=== PATIENT | female | born 1965 | race Caucasian/White ===

== ENCOUNTER → 2020-09-05 10:00 | Outpatient (CLI) | payer OTHER, SELFPAY ==
--- NOTE | ~2020-09-05 | MR_ITS ---
EXAMINATION: MR lumbar spine wo [facility] EXAM DATE: 09/05/2020 12:04 INDICATION: Radiculopathy, chronic lumbar back pain. Bilateral leg weakness. TECHNIQUE: Multi-sequential, multiplanar MR images of the lumbar spine were obtained without contrast . Sagittal T1, T2, T2 fat saturation images. Axial T2 weighted images. There is no prior study for comparison. FINDINGS: The conus medullaris terminates at the L1/2 level and has normal signal intensity and morph ology. There is mild disc disease at all lumbar levels. There is 3 mm retrolisthesis L5 on S1. The v ertebral bodies are otherwise aligned. There are scattered focal signal abnormalities consistent with hemangiomata, otherwise without focal suspicious marrow signal abnormalities. Paraspinal soft tissue is unremarkable. Level by level evaluation: T11-12: Disc does not extend beyond the endplate margin. Facet arthropathy: Mild. Neural foraminal stenosis: No stenosis. Central canal stenosis: No stenosis. T12-L1: Disc does not extend beyond the endplate margin. Facet arthropathy: Mild. Neural foraminal stenosis: No stenosis. Central canal stenosis: No stenosis. L1-L2: Disc does not extend beyond the endplate margin. Facet arthropathy: Mild. Neural foraminal stenosis: No stenosis. Central canal stenosis: No stenosis. L2-L3: There is a mild diffuse disc bulge. Facet arthropathy: Mild to moderate. Neural foraminal stenosis: Mild left. Central canal stenosis: No stenosis. L3-L4: There is a mild to moderate diffuse disc bulge. Facet arthropathy: Mild to moderate. Neural foraminal stenosis: Mild. Central canal stenosis: No stenosis. L4-L5: There is a mild to moderate diffuse disc bulge. Annular fissure. Facet arthropathy: Mild to moderate. Neural foraminal stenosis: Mild to moderate bilateral, left greater than right. Central canal stenosis: Mild to moderate. L5-S1: There is a mild diffuse disc bulge. Facet arthropathy: Mild to moderate right, mild left. Neural foraminal stenosis: Mild to moderate bilateral. Central canal stenosis: No stenosis. IMPRESSION: Mild to moderate lumbar spondylosis. Reviewed, dictated and finalized at location B. INAL CARMAN
== END ==
PROVIDERS: Visit Provider Physician Assistant
DX: M48.062 Spinal stenosis, lumbar region with neurogenic claudication (principal); M47.26 Other spondylosis with radiculopathy, lumbar region
CPT/HCPCS: 72148

== ENCOUNTER 2021-05-17 13:24 | Outpatient (CLI) | payer OTHER, SELFPAY ==
--- NOTE | ~2021-05-17 | US_ITS ---
EXAMINATION: US carotid duplex BI DATE: 05/17/2021 13:57 INDICATION: Carotid stenosis TECHNIQUE: Grayscale, color Doppler, and pulsed Doppler images of the cervical carotid arteries were obtained. The degree of vessel stenosis is placed in one of the following categories: normal, <50%, 5 0-69%, >=70% but less than near-occlusion, near-occlusion, or total occlusion. Note that percent sten osis relative to normal distal artery lumen diameter is indirectly measured from velocity measurement s as described by Domingo, et al. Radiology 2003; [id number]. COMPARISON: 10/22/2018 FINDINGS: RIGHT: The right common carotid artery (CCA) peak systolic velocity (PSV) is 78 cm/s. The right internal car otid artery (ICA) PSV is 74 cm/s. The right ICA end-diastolic velocity (EDV) is 23 cm/s. The right IC A/CCA PSV ratio is 0.9. Grayscale and color Doppler images yield an estimate of <50% diameter reducti on from plaque in the ICA. The external carotid artery (ECA) PSV is 88 cm/s. There is antegrade flow in the right vertebral artery. LEFT: The left CCA PSV is 76 cm/s. The left ICA PSV is 102 cm/s. The left ICA EDV is 34 cm/s. The left ICA/ CCA PSV ratio is 1.3. The location of velocity measurements in the left ICA do not appear to be locat ed at the site of maximal velocity based upon the color imaging and are likely underestimated. Visual ly the degree of stenosis on grayscale imaging appears 50-69% as on the prior study at which time the peak systolic velocities are also consistent with a 50-69% diameter reduction from plaque in the ICA . The ECA PSV is 79 cm/s. There is antegrade flow in the left vertebral artery. IMPRESSION: 1. <50% stenosis in the right internal carotid artery. 2. Unchanged 50-69% stenosis in the left internal carotid artery with peak systolic velocities in the left ICA likely underestimated in the current study due to cursor positioning. Reviewed, dictated and finalized at location A. IMPRESSION: 1. <50% stenosis in the right internal carotid artery. 2. Unchanged 50-69% stenosis in the left internal carotid artery with peak syst olic velocities in the left ICA likely underestimated in the current study due to cursor positioning.
== END 2021-05-17 13:25 | disposition home or self-care (01) ==
LOC: ANHIMG 13:27
PROVIDERS: PCP Internal Medicine; Visit Provider Nurse Practitioner Adult Health
DX: I65.23 Occlusion and stenosis of bilateral carotid arteries (principal)
CPT/HCPCS: 93880

== ENCOUNTER → 2022-10-24 15:23 | Outpatient (CLI) | payer OTHER, SELFPAY ==
--- NOTE | ~2022-10-24 | XR_ITS ---
XR elbow RT 2V DATE: 10/24/2022 15:36 INDICATION: Right elbow pain. Lateral epicondylitis. TECHNIQUE: AP and lateral views COMPARISON: None FINDINGS: Ununited ossification centimeters at the lateral and medial distal humeral epicondyles. There is narrowing at the elbow joint and degenerative spurring, consistent with osteoarthritis. No recent fracture or dislocation or joint effusion. No periosteal reaction or bone destruction. IMPRESSION: Osteoarthritis Reviewed, dictated and finalized at location B. IMPRESSION: Osteoarthritis
== END ==
PROVIDERS: PCP Internal Medicine; Visit Provider Physician Assistant
DX: M19.021 Primary osteoarthritis, right elbow (principal)
CPT/HCPCS: 73070

== ENCOUNTER → 2023-08-14 12:11 | Outpatient (CLI) | payer OTHER, SELFPAY ==
--- NOTE | ~2023-08-14 | MM_ITS ---
EXAMINATION: MM screening [facility] BI w [facility]y HISTORY: Screening mammogram TECHNIQUE: Craniocaudal and mediolateral oblique 3-D tomosynthesis images were obtained and synthetic 2-D images were generated. CAD analysis was submitted and interpreted. COMPARISON: 03/11/2019, 06/12/2017 BREAST PARENCHYMAL COMPOSITION: There are scattered areas of fibroglandular density. FINDINGS: No suspicious mass, calcification, or architectural distortion are identified in either meño ast to suggest malignancy. There has been no suspicious interval change. IMPRESSION: 1. No mammographic evidence of malignancy. 2. Recommend routine screening mammography in one year. BI-RADS Category 1: Negative Reviewed, dictated and finalized at location A. TING DEPARTMENT SUPERVISOR
== END ==
PROVIDERS: PCP Internal Medicine; Visit Provider Internal Medicine
DX: Z12.31 Encounter for screening mammogram for malignant neoplasm of breast (principal)
CPT/HCPCS: 77063; 77067

== ENCOUNTER → 2023-09-11 15:31 | Outpatient (CLI) | payer OTHER, SELFPAY ==
--- NOTE | ~2023-09-11 | XR_ITS ---
[id number]_CR DATE: 09/11/2023 15:48 INDICATION: Right-sided chest pain TECHNIQUE: PA chest. 3 views of the right ribs. COMPARISON: None FINDINGS: Normal heart size. No hilar or mediastinal enlargement. No pulmonary infiltrate or consolid ation, pleural effusion or pulmonary vascular congestion or pneumothorax. No hilar or mediastinal enl argement. There is minimal thoracic aortic unfolding. No right rib fracture or bone destruction is detected. Degenerative spurring of the thoracic and lumbar spine. IMPRESSION: No active cardiopulmonary disease No right rib fracture or bone destruction Reviewed, dictated and finalized at Location A. Reviewed, dictated and finalized at location B. H EXAMINER
== END ==
PROVIDERS: PCP Internal Medicine; Visit Provider Internal Medicine
DX: R07.81 Pleurodynia (principal)
CPT/HCPCS: 71101

== ENCOUNTER 2023-10-23 13:29 | Outpatient (CLI) | payer OTHER, SELFPAY ==
--- NOTE | ~2023-10-23 | MR_ITS ---
MRI of the lumbar spine Clinical History: Lumbar stenosis Technique: Axial T2-weighted images, and sagittal T1-weighted, T2-weighted, and and T2 fat-sat images were acquired. COMPARISON: 09/05/2020 Findings: There is no fracture or subluxation of lumbar spine. Osseous alignment is unchanged. No milagros picious bone marrow signal abnormality seen. At L1-L2, there is no disc bulge or herniation. There is moderate facet arthropathy. No aria central canal stenosis or neural foraminal narrowing. At L2-L3, there is minimal disc bulge with moderate facet arthropathy. Minimal congenital central can al stenosis. There is minimal left neural foraminal narrowing. Right neural foramen preserved. At L3-L4, there is disc bulge and moderate facet arthropathy, resulting in mild central canal stenosi s/thecal sac compression. There is moderate left neural foraminal narrowing, and mild right neural fo raminal narrowing. At L4-L5, disc bulge and facet arthropathy result in mild to moderate central canal stenosis. There i s moderate to severe left neural foraminal narrowing, and moderate right neural foraminal narrowing. At L5-S1, there is minimal disc bulge with moderate facet arthropathy. No central canal stenosis. The re is moderate bilateral neural foraminal narrowing. Paravertebral soft tissues are unremarkable. Impression: Moderate degenerative spondylosis, as above. Reviewed, dictated and finalized at [facility]. Impression: Moderate degenerative spondylosis, as above.
== END 2023-10-23 13:30 ==
LOC: MICIMG 13:30
PROVIDERS: PCP Physician Assistant; Visit Provider Physician Assistant
DX: M48.062 Spinal stenosis, lumbar region with neurogenic claudication (principal); M47.896 Other spondylosis, lumbar region
CPT/HCPCS: 72148

== ENCOUNTER 2024-04-08 17:16 | Emergency (ER) | payer OTHER, SELFPAY ==
--- NOTE | ~2024-04-08 | XR_ITS ---
EXAMINATION: XR chest 1V portable DATE: 04/08/2024 19:17 INDICATION: Infection TECHNIQUE: frontal view of the chest was obtained. COMPARISON: Chest radiograph dated 01/19/2008 FINDINGS: Mild streaky atelectasis at the left costophrenic angle. No other airspace opacities, pulmonary edema , pleural effusion or pneumothorax. The cardiomediastinal silhouette is normal. IMPRESSION: 1. Likely mild streaky lingular atelectasis at the left costophrenic angle. Reviewed, dictated and finalized at location A.
[2024-04-08 17:21] VITALS: BP 138/69; PULSE 81; RESP 18; TEMP 36.2; O2SAT 96
[2024-04-08 17:23] VITALS: O2SAT 97
--- NOTE | 2024-04-08 17:26 | ED.ALLEREA ---
HPI - Allergic Reaction General Chief complaint: Allergic Reaction <Silas Law PA-C - Last Filed: 04/08/24 17:34> Stated complaint: dizzy <Silas Law PA-C - Last Filed: 04/08/24 17:34> Time Seen by Provider: 04/08/24 17:25 <Silas Law PA-C - Last Filed: 04/08/24 17:34> Focused HPI: This is a 58-year-old female who presents to the ED with chief complaint of periodically dizziness over the past couple of days. Reports several distinct episodes that last for several minutes were she feels dizzy/ lightheaded. She reports a heaviness feeling and in the face and head. Denies any fall. States that she does not have symptoms while up and walking. States the symptoms come on at random. denies associated chest pain or shortness of breath. She states that she did have a pinch of chest pain yesterday. Denies recent illness, fevers, chills, abdominal pain, nausea, vomiting, diarrhea or bleeding symptoms. GENERAL: Well-appearing, well-nourished, and in no acute distress. HEAD: Normocephalic, atraumatic. CHEST: Clear to auscultation. No respiratory distress. HEART: Regular rate and rhythm. NEURO: Alert and oriented x3. Patient screened in triage and initial orders placed. Additional care and disposition to be based upon diagnostic testing and treatment. <Silas Law PA-C - Last Filed: 04/08/24 17:34> Focused HPI: This is a 58-year-old female who presents to the ED with chief complaint of periodically dizziness over the past couple of days. Reports several distinct episodes that last for several minutes were she feels dizzy/ lightheaded. She reports a heaviness feeling and in the face and head. Denies any fall. States that she does not have symptoms while up and walking. States the symptoms come on at random. Denies associated chest pain or shortness of breath. She states that she did have a pinch of chest pain yesterday. Denies recent illness, fevers, chills, abdominal pain, nausea, vomiting, diarrhea or bleeding symptoms. GENERAL: Well-appearing, well-nourished, and in no acute distress. HEAD: Normocephalic, atraumatic. CHEST: Clear to auscultation. No respiratory distress. HEART: Regular rate and rhythm. NEURO: Alert and oriented x3. Patient screened in triage and initial orders placed. Additional care and disposition to be based upon diagnostic testing and treatment. Patient describes the dizziness as more of a lightheaded episode, denies any room spinning episodes. Patient states that she has not been drinking as much water as she should which could be contributing to her symptoms. Otherwise agree with triage assessment. <Steve Dugan MD - Last Filed: 04/08/24 21:05> Source: patient <Silas Law PA-C - Last Filed: 04/08/24 17:34> Mode of arrival: ambulatory <Silas Law PA-C - Last Filed: 04/08/24 17:34> Limitations: no limitations <Silas Law PA-C - Last Filed: 04/08/24 17:34> Related Data Home medications: Home Medications Medication Instructions Recorded Confirmed allopurinol 100 mg tablet 100 mg PO DAILY 07/13/20 aspirin 81 mg tablet,delayed 81 mg PO DAILY 07/13/20 release (Adult Aspirin Regimen) azathioprine 50 mg tablet 50 mg PO DAILY 07/13/20 baclofen 10 mg tablet 10 mg PO DAILY 07/13/20 citalopram 20 mg tablet 20 mg PO DAILY 07/13/20 empagliflozin 10 mg tablet 10 mg PO DAILY 07/13/20 (Jardiance) folic acid 1 mg tablet 1 mg PO DAILY 07/13/20 isosorbide mononitrate 30 mg 30 mg PO DAILY 07/13/20 tablet,extended release 24 hr lisinopril 5 mg tablet 5 mg PO DAILY 07/13/20 mesalamine 1.2 gram tablet,delayed 4.8 g PO DAILY 07/13/20 release metoprolol succinate 25 mg 25 mg PO DAILY 07/13/20 tablet,extended release 24 hr nitroglycerin 0.4 mg sublingual 0.4 mg sublingual Q5M PRN 07/13/20 tablet omeprazole 20 mg capsule,delayed 20 mg PO DAILY 07/13/20 release rosuvastatin 40 mg tablet 40 mg PO HARRIS
--- NOTE | 2024-04-08 17:33 | ECG_ITS ---
Test Date: 2024-04-08 17:48:23 Measurements Intervals [place] Rate: 69 P: 17 MI: 183 QRS: -42 QRSD: 138 T: 17 QT: 436 QTc: 469 Interpretive Statements SINUS RHYTHM LEFT AXIS DEVIATION RIGHT BUNDLE BRANCH BLOCK CANNOT R/O SEPTAL INFARCT, AGE INDETERMINATE BORDERLINE T WAVE ABNORMALITY- ANT/INF LEADS BASELINE ARTIFACT- I, II, III, AVR, AVL, AVF, V1 ABNORMAL ECG No previous ECG available for comparison Electronically Signed On 04-09-2024 06:45:25 CDT by Chepe Chaudhry D.O.
[2024-04-08] MEDS: MECLIZINE HCL 25 MG TABLET PO (17:45)
[2024-04-08 17:59] LABS: Basophils Absolute Auto 0.1 K/mm3 (0.0-0.1); Basophils Percent Auto 0.4 % (0.2-1.2); Eosinophils Absolute Auto 0.1 K/mm3 (0-0.3); Eosinophils Percent Auto 0.8 % (0-4.4); Hematocrit 42.6 % (37.0-47.0); Hemoglobin 13.5 g/dL (12.0-15.0); Immature Granulocyte Absolute 0.03 K/mm3 (0.00-0.031); Immature Granulocyte Percent A 0.3 % (0-0.5); Lymphocytes Absolute Auto 3.11 K/mm3 (0.9-3.2); Lymphocytes Percent Auto 26.3 % (18.3-44.2); Mean Corpuscular HGB Conc 31.7 g/dl (32-36); Mean Corpuscular Hemoglobin 31.1 pg (26-34); Mean Corpuscular Volume 98.2 fl (80-100); Mean Platelet Volume 9.6 fl (7.4-10.4); Monocytes Absolute Auto 0.9 K/mm3 (0.1-0.6); Monocytes Percent Auto 7.2 % (2.6-8.5); Neutrophils Absolute Auto 7.7 K/mm3 (1.3-6.7); Platelet Count Result 319 k/mm3 (150-375); Red Blood Count 4.34 M/mm3 (4.2-5.4); Red Cell Distribution Width 13.4 % (11.5-14.5); White Blood Count 11.8 K/mm3 (4.5-10.0)
[2024-04-08 18:09] LABS: Alanine Aminotransferase 19 U/L (6-35); Albumin Level 4.5 g/dL (3.5-5.1); Alkaline Phosphatase 82 U/L (38-126); Anion Gap 9 mmol/L (4-12); Aspartate Amino Transferase 29 U/L (14-36); Bilirubin,Total 0.3 mg/dL (0.2-1.3); Blood Urea Nitrogen 18 mg/dL (7-17); Calcium 9.1 mg/dL (8.4-10.2); Carbon Dioxide 29 mmol/L (22-30); Chloride 100 mmol/L (98-107); Estimated CRCL calculation 75 ml/min; Estimated Glomerular Filt Rate > 60; Glucose 117 mg/dL (65-110); Potassium 4.4 mmol/L (3.4-5.0); Sodium 138 mmol/L (137-145)
[2024-04-08 18:12] LABS: Partial Thromboplastin Time 26.2 Seconds (22.3-36.8); Prothrombin Time 13.7 Seconds (11.1-14.7)
[2024-04-08 18:14] VITALS: BP 134/74; PULSE 69; RESP 14; O2SAT 98
[2024-04-08 18:21] LABS: Troponin I < 0.012 ng/mL (0.000-0.034)
[2024-04-08 18:30] VITALS: BP 123/71; PULSE 70; RESP 14; TEMP 36.6; O2SAT 96
[2024-04-08 18:43] LABS: Bacteria Urine 1+ /hpf; Non Pathogenic Casts 0-2; RBC Urine 0-2 /hpf (0-2); Squamous Epithelial Cell Urine Few /hpf (Few); WBC Urine >100 /hpf (0-3)
[2024-04-08 18:44] LABS: Appearance Urine Sl Cloudy (Clear); Bilirubin Urine Negative (Negative); Blood Urine Trace-intact (Negative); Color Urine Yellow (Yellow); Glucose Urine UA 3+ mg/dL (Negative); Ketones Urine Negative (Negative); Nitrate Urine Negative (Negative); Protein Urine Negative (Negative); Urobilinogen Urine 0.2 mg/dL (<2.0); pH Urine 5.5 (5.0-9.0)
[2024-04-08 18:45] LABS: Add Urine Microscopic? YES; Leukocyte Esterase Ur 3+ LEU/UL (Negative)
[2024-04-08 19:41] LABS: Troponin I < 0.012 ng/mL (0.000-0.034)
[2024-04-08 20:31] VITALS: BP 131/84; PULSE 73; RESP 14; O2SAT 100
[2024-04-08] MEDS: SODIUM CHLORIDE 0.9% IV 1,000 ML 999 ML IV CONT (20:32)
== END 2024-04-08 22:27 | disposition home or self-care (01) ==
PROVIDERS: Physician Assistant; Emergency Provider Emergency Medicine; PCP Internal Medicine Interventional Cardiology
DX: R42 Dizziness and giddiness (principal); N39.0 Urinary tract infection, site not specified; Z87.891 Personal history of nicotine dependence
CPT/HCPCS: 36415; 71045; 80053; 81001; 84484; 85025; 85610; 85730; 87086; 87088; 93005; 96365; 99284; A9270; J0696; J7030

== ENCOUNTER 2025-05-13 11:39 | Outpatient (CLI) | payer OTHER, SELFPAY ==
--- NOTE | ~2025-05-13 | MM_ITS ---
EXAMINATION: MM screening [facility] BI w [facility] HISTORY: Screening TECHNIQUE: Craniocaudal and mediolateral oblique 3-D tomosynthesis images were obtained and synthetic 2-D images were generated. CAD analysis was submitted and interpreted. COMPARISON: Comparison to multiple prior studies sequentially, with oldest reviewed study dated , 06/12/2017 BREAST PARENCHYMAL COMPOSITION: There are scattered areas of fibroglandular density. FINDINGS: There is no evidence of suspicious mass, calcification, or architectural distortion to suggest malignancy in either breast. IMPRESSION: 1. No mammographic evidence of malignancy. 2. Recommend routine screening mammography in one year. BI-RADS Category 1: Negative Reviewed, dictated and finalized at location B.
== END 2025-05-13 11:40 | disposition home or self-care (01) ==
LOC: MICIMG 11:40
PROVIDERS: PCP Student in an Organized Health Care Education/Training Program; Visit Provider Student in an Organized Health Care Education/Training Program
DX: Z12.31 Encounter for screening mammogram for malignant neoplasm of breast (principal)
CPT/HCPCS: 77063; 77067